=== PATIENT | female | born 1995 | race Hispanic/Latino ===

== ENCOUNTER 2021-08-14 16:09 | Inpatient (IN) | payer BC, MEDICAID ==
[2021-08-14] MEDS ORDERED: Lidocaine 1% (PF) 30 ML VIAL SC PRN (17:09)
[2021-08-14] MEDS ORDERED: Promethazine HCl 25 MG/ML VIAL IM PRN (17:09)
[2021-08-14] MEDS ORDERED: Ibuprofen 800 MG TAB PO PRN (17:09)
[2021-08-14] MEDS ORDERED: Butorphanol Tartrate 1 MG/ML VIAL SLOW IVP PRN (17:09)
[2021-08-14] MEDS ORDERED: Ondansetron PF 4 MG/2 ML Vial IVP PRN (17:09)
[2021-08-14] MEDS ORDERED: hydrALAZINE 20 MG/ML VIAL SLOW IVP PRN (17:09)
[2021-08-14] MEDS ORDERED: HYDROcodone/Acetaminophen 5/325 mg Tablet PO PRN ×2 (17:09)
[2021-08-14] MEDS ORDERED: NS w/ Oxytocin 30 units 500 ML IV SCH ×2 (17:15)
[2021-08-14] MEDS ORDERED: Penicillin G Potassium 5 MILL.UNITS in Sodium Chloride 0.9% 100 ML IVPB SCH (17:15)
[2021-08-14 17:29] VITALS: BMI 20.5
[2021-08-14] MEDS: Lactated Ringer's 1,000 ML IV SCH (17:45)
[2021-08-14 18:06] LABS: Hemoglobin 12.9 g/dL (12.0-15.5); Mean Corpuscular HGB CONC 34.9 g/dL (32.0-36.0); Mean Corpuscular Hemoglobin 32.4 pg (27.0-33.0); Mean Platelet Volume 11.3 fl (7.4-10.4); Platelet Count 175 10x3/uL (150-450); RBC Distribution Width 13.3 % (11.5-14.5); Red Blood Cell (RBC) Count 3.98 10x6/uL (3.90-5.03); White Blood Cell (WBC) Count 9.4 10x3/uL (3.5-10.5)
[2021-08-14 18:32] LABS: Hep B Surf Ag Non-Reactive S/CO (NonReactive)
[2021-08-14 18:33] LABS: Syphilis Antibody Nonreactive (Nonreactive); Syphilis Antibody Index 0.03 S/CO (<1.00 Non-Reactive)
[2021-08-14 18:37] LABS: HBSAg Index 0.18 S/CO (0-0.99)
[2021-08-14] MEDS: Penicillin G 2.5 MILL.units 2.5 MILL.UNITS in Premix Bag 1 BAG IVPB SCH (23:15)
[2021-08-15] MEDS: Penicillin G 2.5 MILL.units 2.5 MILL.UNITS in Premix Bag 1 BAG IVPB SCH ×2 (02:48→09:21)
[2021-08-15] MEDS: Lactated Ringer's 1,000 ML IV SCH ×2 (02:48→09:30)
[2021-08-15] MEDS ORDERED: Milk Of Magnesia 30 ML UDCUP PO PRN (05:47)
[2021-08-15] MEDS ORDERED: Misoprostol 200 MCG TAB VAG PRN (05:47)
[2021-08-15] MEDS ORDERED: Benzocaine-Menthol 82.5 ML CAN TOP PRN (05:47)
[2021-08-15] MEDS ORDERED: hydrALAZINE 20 MG/ML VIAL SLOW IVP PRN (05:47)
[2021-08-15] MEDS ORDERED: Bisacodyl 10 MG SUPP PR PRN (05:47)
[2021-08-15] MEDS ORDERED: Lanolin Ointment 7 GM TUBE TOP PRN (05:47)
[2021-08-15] MEDS ORDERED: Boostrix 0.5 ML (Tdap) VIAL IM ONE (05:47)
[2021-08-15] MEDS ORDERED: traMADol HCl 50 MG TAB PO PRN (05:47)
[2021-08-15] MEDS ORDERED: Preparation H Ointment 28 GM TUBE PR PRN (05:47)
[2021-08-15] MEDS: Ibuprofen 800 MG TAB PO SCH ×3 (06:31→21:32)
[2021-08-15] MEDS: Docusate 100 MG CAP PO SCH ×2 (09:24→21:33)
[2021-08-15] MEDS: Prenatal Vitamin 1 TAB PO SCH (09:24)
[2021-08-15] MEDS: Ferrous Sulfate 325 MG TAB PO SCH ×2 (09:29→16:50)
[2021-08-16 04:25] VITALS: TEMP 98
[2021-08-16] MEDS: Ibuprofen 800 MG TAB PO SCH ×2 (05:34→13:32)
[2021-08-16] MEDS: Ferrous Sulfate 325 MG TAB PO SCH (10:26)
[2021-08-16] MEDS: Docusate 100 MG CAP PO SCH (10:27)
[2021-08-16] MEDS: Prenatal Vitamin 1 TAB PO SCH (10:27)
[2021-08-16 14:41] VITALS: BP 101/55
== END 2021-08-16 15:15 | disposition home or self-care (01) | DRG 805 ==
LOC: CSHLD 16:09 → CSHPP 08-15 08:30
PROVIDERS: ADMIT Obstetrics & Gynecology; ATTEND Obstetrics & Gynecology
PROC: 10E0XZZ Delivery of Products of Conception, External Approach (ICD-10-PCS; principal; 2021-08-15)
PROC: 0KQM0ZZ Repair Perineum Muscle, Open Approach (ICD-10-PCS; 2021-08-15)
PROC: 10907ZC Drainage of Amniotic Fluid, Therapeutic from Products of Conception, Via Natural or Artificial Opening (ICD-10-PCS; 2021-08-15)
DX: O99.824 Streptococcus B carrier state complicating childbirth (principal); U07.1 COVID-19; Z37.0 Single live birth; O98.52 Other viral diseases complicating childbirth; O70.1 Second degree perineal laceration during delivery; Z3A.38 38 weeks gestation of pregnancy
CPT/HCPCS: 36415; 85027; 86780; 86850; 86900; 86901; 87340; J2540; J2590; J3490; J7120